=== PATIENT | female | born 1950 | race African-American/Black ===

== ENCOUNTER 2022-04-19 22:47 | Observation (INO) ==
[2022-04-20 02:40] LABS: Basophils # (auto) 0.01 K/uL (0-0.2); Basophils % (auto) 0.2 %; Eosinophils # (auto) 0.18 K/uL (0-0.5); Eosinophils % (auto) 3.6 %; Hematocrit (blood only) 33.1 % (37-47); Hemoglobin 10.4 g/dL (12.0-16.0); Immature Granulocytes # (auto) 0.01 K/uL (0.00-0.02); Immature Granulocytes % (auto) 0.2 %; Lymphocytes # (auto) 1.73 K/uL (1.2-3.4); Lymphocytes % (auto) 34.3 %; Mean Corpuscular Hemoglobin 28.2 pg (25-34); Mean Corpuscular Hgb Conc 31.4 g/dL (32-36); Mean Corpuscular Volume 89.7 fL (80-100); Mean Platelet Volume 10.5 fL (7.4-10.4); Monocytes # (auto) 0.44 K/uL (0.11-0.59); Monocytes % (auto) 8.7 %; Neutrophils # (auto) 2.68 K/uL (1.4-6.5); Platelet Count 280 K/uL (130-400); RDW Coefficient of Variation 14.7 % (11.5-14.5); RDW Standard Deviation 48.2 fL (36.4-46.3); Red Blood Count 3.69 M/uL (4.2-5.4); White Blood Count 5.05 K/uL (4.8-10.8)
[2022-04-20 02:55] LABS: Albumin Globulin Ratio 1.6 (0.9-2); Albumin Level 4.2 gm/dl (3.4-5.0); BUN Creatinine Ratio 23.1 (10-20); Bilirubin,Total 0.3 mg/dl (0.2-1.0); Calcium 9.2 mg/dl (8.5-10.1); Creatinine Clr Calc Pharmacy 63.5 ml/min; Est GFR (African American) 74.1 ml/min; Est GFR (Non-African American) 63.9 ml/min; Globulin 2.7 gm/dl (2.5-4.0); Potassium 3.9 mmol/L (3.5-5.1); Total Protein 6.9 gm/dl (6.0-8.3)
[2022-04-20] MEDS ORDERED: OPTIRAY 320 125ml IV ONE (03:46)
--- NOTE | 2022-04-20 04:22 | Emergency Department Note ---
Impression & Plan Gait instability Admit to the [facility] service ED Provider Note NAME: ODILON ENCARNACION AGE: 72 SEX: F ARRIVES VIA: Walk-In INFORMANT: Patient and her daughter ED PROVIDER(S): Nakia Conner DO CHIEF COMPLAINT: Gait instability PLAN: Disposition: Admit to the [facility] service Condition: Stable MEDICAL DECISION MAKING: This is a 72-year-old female patient who awoke yesterday morning with significant balance issues as she describes it. The patient has baseline balance issues but awoke with significant decline in walking. CT of the brain was negative. Laboratory studies were unremarkable but the patient had to use 2 canes in order to ambulate at home. I remain concerned about the possibility of a posterior stroke. She will require MRI of the brain. I discussed the case with the [facility] and they will evaluate for further management. Triage Nursing notes reviewed and agree with them. Prior medical records reviewed Vital Signs: reviewed and remarkable for [no significant abnormalities] Differential diagnosis: Vertigo, dehydration, posterior circulation stroke, Diagnostics interpreted by me: ECG: Normal sinus rhythm at a rate of [address] segment elevation or signs of ischemia. There is no ectopy. Cardiac Monitoring: Normal sinus rhythm at a rate of 62 Laboratory studies: See below Imaging studies: As per stat read CT head: No acute intracranial abnormality. Senescent changes. If there is further concern, consider MRI. CTA head: Findings suspicious for saccular aneurysm of the slow supraclinoid left internal carotid artery measuring 3 x 2 mm. No other acute findings within the head. Recommend MRI if there is further concern. CTA neck: No evidence of flow-limiting stenosis or evidence of dissection within the neck. Diffusely enlarged thyroid with heterogeneity without discrete nodule. Consider thyroid ultrasound on a nonemergent basis HPI: 72/F arrives for evaluation of balance issues. The patient awoke yesterday morning with significant balance instability when walking. The patient states that she has difficulty with her balance in the first place and uses a cane to walk but when she woke up yesterday morning she had a very hard time walking and had to use 2 canes in order to get around. She states that she felt weak, nauseated and heaviness in her head as she describes it. There was also some dizziness. ROS: See above HPI for pertinent positives & negatives. A total of 10 systems reviewed and were otherwise negative. PAST MEDICAL HISTORY:Diabetes, hypercholesterolemia, hypertension, asthma, and depression PAST SURGICAL HISTORY:See Below FAMILY HISTORY:See Below SOCIAL HISTORY:See Below HOME MEDICATIONS:See list ALLERGIES:See list VITALS:See Below PHYSICAL EXAMINATION: HEENT: Head - normocephalic and atraumatic. Pupils are equal, round, and reactive to light. Extraocular eye muscles are intact and sclera are anicteric. Nose - moist nasal mucosa without discharge. Mouth - moist buccal mucosa. Oropharynx is nonerythematous and there is no tonsillar exudate or edema noted. Neck: Supple; no cervical lymphadenopathy or JVD Heart: Regular rate and rhythm. There is a normal S1 and S2 with no murmurs, clicks, or gallops appreciated. Lungs: Clear to auscultation bilaterally with no wheezes, rales, or rhonchi. Abdomen: Soft, completely nontender, nondistended, with good bowel sounds. There are no palpable pulsatile masses or hepatosplenomegaly. There is no guarding, rigidity, or rebound noted. Extremities: No evidence of cyanosis, clubbing, or edema. There are easily palpable peripheral pulses. Neuro:The patient is awake and alert, oriented to day, time, and place. Muscle strength is 5/5 in all 4 extremities. The patient has equal forestry consultant strength and equal pedal push and pull. There are no cerebellar signs. ED COURSE: Times/Reassessments: 0200: The patient was evaluated in room C 11. A complete history and physical was performed. Laboratory studies were drawn as above. An order was placed for continuous cardiac monitoring. The patient was in a normal sinus rhythm at a rate of 62. She had a twelve-lead EKG obtained as described above. patient went for CT of the brain and CT angiogram of the brain and neck. I reviewed the results of the laboratory studies and CT scans with the patient and her daughter. I discussed the case with the [facility] and they will evaluate for further management. Nakia Conner DO Past Med/Surg History Medical History (Updated 04/20/22 @ 22:44 by Lulú Turcios DO) Anxiety and depression Arthritis Asthma rare use of PRN inh Bipolar 2 disorder Cardiac murmur no slag expander; echo 2019 [facility] in [place], [place] DM type 2 (diabetes mellitus, type 2) GERD (gastroesophageal reflux disease) History of radioactive iodine thyroid ablation HLD (hyperlipidemia) HTN (hypertension) Hypothyroidism Pancreatic cyst PCP monitoring Spinal stenosis Surgical History History of bilateral knee replacement History of carpal tunnel surgery BL History of cholecystectomy History of colonoscopy History of esophagogastroduodenoscopy (EGD) History of foot surgery left History of hysterectomy History of lumbar fusion History of rotator cuff surgery left History of tonsillectomy Family History Mother Hypertension Sister Hypertension Allergies Brother Allergies Father Heart disease Family/Other Asthma "everyone" Other No family history of adverse response to anesthesia No family history of bleeding disorder Social History Smoking Status: Never smoker Tobacco Type: Cigarettes packs per day: 1; Years Smoked: 10; Second Hand Exposure: No; Do You Dip or Chew Tobacco: No; Tobacco Cessation Education Requested by Patient: No Hx Alcohol Use: No Hx Substance Use: No Preferred Language: Citizen Of [place] Communication Ability: Effective Breaker Operator Required: No Beliefs That Will Affect Care: None marital status: Single Current Living Situation: Family Current Living Situation Comment: lives with dtr current occupational status: employed current occupation: customer liaison Other Information That Helps Us Care for You: No Feels Safe at Home: Yes Safety Concerns: Feels Safe At This Time Assistive Devices: Crutches Allergies Allergies Allergy/AdvReac Type Severity Reaction Status Date / Time pollen extracts Allergy Intermediate Congested Verified 09/09/21 09:02 amoxicillin [From Augmentin] AdvReac gi bleed Verified 09/09/21 09:02 clavulanic acid AdvReac gi bleed Verified 09/09/21 09:02 [From Augmentin] Home Meds Home Medications Medication Instructions Recorded Confirmed aspirin 81 mg tablet,delayed 81 mg PO PM 08/24/21 09/09/21 release (Brennon Low Dose Aspirin) atorvastatin 40 mg tablet 40 mg PO HS 08/24/21 09/09/21 buspirone 10 mg tablet 10 mg PO BID 08/24/21 09/09/21 cyanocobalamin (vitamin B-12) 1,000 mcg PO QAM 08/24/21 09/09/21 1,000 mcg tablet (Vitamin B-12) ferrous sulfate 325 mg (65 mg 325 mg PO QAM 08/24/21 09/09/21 iron) tablet fexofenadine 180 mg tablet 180 mg PO QAM 08/24/21 09/09/21 fluoxetine 40 mg capsule 40 mg PO QAM 08/24/21 09/09/21 lamotrigine 100 mg tablet 100 mg PO HS 08/24/21 09/09/21 lamotrigine 150 mg tablet 150 mg PO HS 08/24/21 09/09/21 levothyroxine 75 mcg tablet 75 mcg PO DAILYBB 08/24/21 09/09/21 losartan 100 1 tab PO QAM 08/24/21 09/09/21 mg-hydrochlorothiazide 25 mg tablet metformin 500 mg tablet,extended 1,000 mg PO BID 08/24/21 09/09/21 release 24 hr montelukast 10 mg tablet 10 mg PO HS 08/24/21 09/09/21 pantoprazole 40 mg tablet,delayed 40 mg PO QAM 08/24/21 09/09/21 release trazodone 100 mg tablet 100 mg PO HS 08/24/21 09/09/21 albuterol sulfate 90 mcg/actuation 1 puff INHALATION QID PRN 08/25/21 09/09/21 aerosol inhaler hyoscyamine sulfate 0.125 mg 0.125 mg PO BID PRN 04/20/22 04/20/22 tablet (Levsin) Results & Data (ED) Vital Signs Vital Signs - 24 hr 04/19/22 22:56 04/20/22 01:05 04/20/22 01:10 Temperature 37 C Temperature Source Temporal Artery Scan Pulse Rate 66 55 L 54 L Pulse Rate [Right] Pulse Rate from SpO2 Sensor 55 L 55 L Pulse Rhythm Regular Pulse Rhythm [Right] Pulse Strength Normal Pulse Strength [Right] Respiratory Rate 18 13 14 Respiratory Effort / Characteristics Non-Labored Spontaneous Respiratory Depth Normal Respiratory Pattern Regular Blood Pressure 128/58 L Blood Pressure [Right Arm] Blood Pressure Mean 81 Blood Pressure Mean [Right Arm] Blood Pressure Position Sitting Blood Pressure Position [Right Arm] Pulse Oximetry 98 96 98 Oxygen Delivery Method Room Air Sepsis Recent Fever Within 48 Hours No Sepsis New/Unexplained Change in Mental Status N/A Sepsis Action Taken by Nursing No Action Required 04/20/22 01:20 04/20/22 01:30 04/20/22 01:40 Temperature Temperature Source Pulse Rate 56 L 56 L 57 L Pulse Rate [Right] Pulse Rate from SpO2 Sensor 56 L 56 L 57 L Pulse Rhythm Pulse Rhythm [Right] Pulse Strength Pulse Strength [Right] Respiratory Rate 15 16 18 Respiratory Effort / Characteristics Respiratory Depth Respiratory Pattern Blood Pressure 139/74 Blood Pressure [Right Arm] Blood Pressure Mean 95 Blood Pressure Mean [Right Arm] Blood Pressure Position Blood Pressure Position [Right Arm] Pulse Oximetry 95 95 95 Oxygen Delivery Method Sepsis Recent Fever Within 48 Hours Sepsis New/Unexplained Change in Mental Status Sepsis Action Taken by Nursing 04/20/22 01:50 04/20/22 02:00 04/20/22 02:10 Temperature Temperature Source Pulse Rate 58 L 57 L 58 L Pulse Rate [Right] Pulse Rate from SpO2 Sensor 58 L 57 L 58 L Pulse Rhythm Pulse Rhythm [Right] Pulse Strength Pulse Strength [Right] Respiratory Rate 16 13 14 Respiratory Effort / Characteristics Non-Labored Respiratory Depth Normal Respiratory Pattern Blood Pressure 165/72 H Blood Pressure [Right Arm] Blood Pressure Mean 103 Blood Pressure Mean [Right Arm] Blood Pressure Position Blood Pressure Position [Right Arm] Pulse Oximetry 95 97 98 Oxygen Delivery Method Room Air Sepsis Recent Fever Within 48 Hours Sepsis New/Unexplained Change in Mental Status Sepsis Action Taken by Nursing 04/20/22 02:20 04/20/22 02:30 04/20/22 02:36 Temperature Temperature Source Pulse Rate 58 L 59 L Pulse Rate [Right] Pulse Rate from SpO2 Sensor 58 L 59 L Pulse Rhythm Pulse Rhythm [Right] Pulse Strength Pulse Strength [Right] Respiratory Rate 19 18 Respiratory Effort / Characteristics Respiratory Depth Respiratory Pattern Blood Pressure Blood Pressure [Right Arm] Blood Pressure Mean Blood Pressure Mean [Right Arm] Blood Pressure Position Blood Pressure Position [Right Arm] Pulse Oximetry 98 98 99 Oxygen Delivery Method Room Air Sepsis Recent Fever Within 48 Hours Sepsis New/Unexplained Change in Mental Status Sepsis Action Taken by Nursing 04/20/22 03:40 04/20/22 04:50 04/20/22 05:59 Temperature Temperature Source Pulse Rate Pulse Rate [Right] 59 L 76 57 L Pulse Rate from SpO2 Sensor Pulse Rhythm Pulse Rhythm [Right] Regular Pulse Strength Pulse Strength [Right] Normal Respiratory Rate 16 16 16 Respiratory Effort / Characteristics Non-Labored Spontaneous Non-Labored Spontaneous Non-Labored Spontaneous Respiratory Depth Normal Normal Normal Respiratory Pattern Blood Pressure Blood Pressure [Right Arm] 141/80 H 163/84 H 169/86 H Blood Pressure Mean Blood Pressure Mean [Right Arm] 100 110 113 Blood Pressure Position Blood Pressure Position [Right Arm] Lying Pulse Oximetry 98 96 96 Oxygen Delivery Method Room Air Room Air Room Air Sepsis Recent Fever Within 48 Hours Sepsis New/Unexplained Change in Mental Status Sepsis Action Taken by Nursing Laboratory Data Result diagrams: 04/21/22 05:43 04/21/22 05:43 Lab Results 04/20/22 04/20/22 04/20/22 Range/Units 00:42 00:42 04:35 WBC 5.05 (4.8-10.8) K/uL RBC 3.69 L (4.2-5.4) M/uL Hgb 10.4 L (12.0-16.0) g/dL Hct 33.1 L (37-47) % MCV 89.7 (80-100) fL MCH 28.2 (25-34) pg MCHC 31.4 L (32-36) g/dL RDW Std Deviation 48.2 H (36.4-46.3) fL RDW Coeff of Alex 14.7 H (11.5-14.5) % Plt Count 280 (130-400) K/uL MPV 10.5 H (7.4-10.4) fL Immature Gran % (Auto) 0.2 % Neut % (Auto) 53.0 % Lymph % (Auto) 34.3 % [place] % (Auto) 8.7 % Eos % (Auto) 3.6 % Baso % (Auto) 0.2 % Neut # (Auto) 2.68 (1.4-6.5) K/uL Lymph # (Auto) 1.73 (1.2-3.4) K/uL [place] # (Auto) 0.44 (0.11-0.59) K/uL Eos # (Auto) 0.18 (0-0.5) K/uL Baso # (Auto) 0.01 (0-0.2) K/uL Immature Gran # (Auto) 0.01 (0.00-0.02) K/uL Sodium 135 L (136-145) mmol/L Potassium 3.9 (3.5-5.1) mmol/L Chloride 100 (98-107) mmol/L Carbon Dioxide 28 (21-32) mmol/L Anion Gap 7 (3-11) BUN 21 (6-23) mg/dl Creatinine 0.91 (0.6-1.2) mg/dl Est Cr Clr Drug Dosing 63.5 ml/min Est GFR ( Amer) 74.1 ml/min Est GFR (Non-Af Amer) 63.9 ml/min BUN/Creatinine Ratio 23.1 H (10-20) Glucose 107 H (70-99(Fasting)) mg/dl Calcium 9.2 (8.5-10.1) mg/dl Total Bilirubin 0.3 (0.2-1.0) mg/dl AST 12 L (13-39) U/L ALT 9 (7-52) U/L Alkaline Phosphatase 71 (34-104) U/L Total Protein 6.9 (6.0-8.3) gm/dl Albumin 4.2 (3.4-5.0) gm/dl Globulin 2.7 (2.5-4.0) gm/dl Albumin/Globulin Ratio 1.6 (0.9-2) SARS-CoV-2, RNA, NAAT NEGATIVE (NEGATIVE) Administered Medications Acetaminophen (Acetaminophen 325 Mg Tab) 650 mg PO Q4H PRN PRN Reason: Pain or Fever Stop: 05/20/22 09:17 Last Admin: 04/20/22 10:21 Dose: 650 mg Documented by: [id number] Aspirin (Aspirin 81 Mg Ectab) 81 mg PO PM CHERI Stop: 05/20/22 20:59 Last Admin: 04/20/22 21:46 Dose: 81 mg Documented by: [id number] Atorvastatin Calcium (Atorvastatin 40 Mg Tab) 40 mg PO HS CHERI Stop: 05/20/22 20:59 Last Admin: 04/20/22 21:47 Dose: 40 mg Documented by: [id number] Buspirone HCl (Buspirone 5 Mg Tab) 10 mg PO BID CHERI Stop: 05/20/22 20:59 Last Admin: 04/21/22 08:01 Dose: 10 mg Documented by: [id number] Admin: 04/20/22 21:47 Dose: 10 mg Documented by: [id number] Cyanocobalamin (Cyanocobalamin (B-12) 500 Mcg Tablet) 1,000 mcg PO QAM [facility]ERI Stop: 05/21/22 08:59 Last Admin: 04/21/22 08:00 Dose: 1,000 mcg Documented by: [id number] Enoxaparin Sodium (Enoxaparin Inj 40 Mg/0.4 Ml Syr) 40 mg SQ [facility] Stop: 05/20/22 09:44 Last Admin: 04/21/22 08:00 Dose: 40 mg Documented by: [id number] Admin: 04/20/22 10:19 Dose: 40 mg Documented by: [id number] Ferrous Sulfate (Ferrous Sulfate 325 Mg Tab) 325 mg PO [facility] Stop: 05/21/22 08:59 Last Admin: 04/21/22 08:00 Dose: 325 mg Documented by: [id number] Fexofenadine HCl (Fexofenadine Hcl 180 Mg Tab) 180 mg PO [facility] Stop: 05/21/22 08:59 Last Admin: 04/21/22 08:00 Dose: 180 mg Documented by: [id number] Fluoxetine HCl (Fluoxetine Hcl 20 Mg Cap) 40 mg PO [facility] Stop: 05/20/22 10:59 Last Admin: 04/21/22 08:01 Dose: 40 mg Documented by: [id number] Admin: 04/20/22 12:08 Dose: 40 mg Documented by: [id number] HCTZ/Losartan Potassium (Losartan/Hctz 50/12.5mg Tab) 1 tab PO [facility] Stop: 05/20/22 10:59 Last Admin: 04/21/22 08:00 Dose: 1 tab Documented by: [id number] Admin: 04/20/22 12:08 Dose: 1 tab Documented by: [id number] Insulin Aspart (Insulin Aspart Per Unit) 0 units SC [facility] Stop: 05/20/22 09:17 Last Admin: 04/21/22 08:03 Dose: Not Given Documented by: [id number] Admin: 04/20/22 20:32 Dose: Not Given Documented by: [id number] Admin: 04/20/22 17:14 Dose: Not Given Documented by: [id number] Admin: 04/20/22 13:54 Dose: 3 units Documented by: [id number] Cosigned by: [id number] Admin: 04/20/22 10:23 Dose: Not Given Documented by: [id number] Lamotrigine (Lamotrigine 100 Mg Tab) 250 mg PO [facility] Stop: 05/20/22 20:59 Last Admin: 04/20/22 21:44 Dose: 250 mg Documented by: [id number] Levothyroxine Sodium (Levothyroxine Sodium 75 Mcg Tablet) 75 mcg PO DAILYBB [facility] Stop: 05/21/22 06:29 Last Admin: 04/21/22 05:47 Dose: 75 mcg Documented by: [id number] Montelukast Sodium (Montelukast Sodium 10 Mg Tablet) 10 mg PO [facility] Stop: 05/20/22 20:59 Last Admin: 04/20/22 21:46 Dose: 10 mg Documented by: [id number] Pantoprazole Sodium (Pantoprazole 40 Mg Tab) [facility] Stop: 05/20/22 10:59 Last Admin: 04/21/22 08:00 Dose: 40 mg Documented by: [id number] Admin: 04/20/22 12:08 Dose: 40 mg Documented by: [id number] Trazodone HCl (Trazodone Hcl 100 Mg Tab) 100 mg PO [facility] Stop: 05/20/22 20:59 Last Admin: 04/20/22 21:46 Dose: 100 mg Documented by: [id number] Discontinued Medications Gadobutrol (Gadobutrol 65ml Vial) 9.2 ml IV ONCE ONE Stop: 04/20/22 13:36 Last Admin: 04/20/22 12:54 Dose: 9.2 ml Documented by: [id number] Sodium Chloride (1/2 Nss) 1,000 mls @ 80 mls/hr IV .[id number] [facility] Stop: 04/20/22 21:47 Last Infusion: 04/20/22 22:51 Dose: 0 mls/hr Documented by: [id number] Admin: 04/20/22 10:18 Dose: 80 mls/hr Documented by: [id number] Ioversol (Optiray 320 125ml) 125 ml IV ONCE ONE Stop: 04/20/22 03:47 Last Admin: 04/20/22 03:47 Dose: 116 ml Documented by: [id number] Imaging Data Radiologist's Impression: Head CT 04/20/22 02:23 CT head/brain wo/w con HISTORY: 72 years-old Female eval for post circ stroke; off balance; dizzy acute strokelike symptoms with dizziness COMPARISON: CTA head neck of same day TECHNIQUE: CTA of the head was obtained both with and without the use of uncertain 116 mL Optiray 320. All measurements were obtained according to NASCET criteria. 3-D coronal and sagittal MIPS were obtained and submitted for review. A dose lowering technique was used consistent with the principals of ALARA. FINDINGS: CT HEAD: No acute intracranial hemorrhage, midline shift, abnormal extra axial collection, hydrocephalus or acute territorial infarct. Mild involutional changes. Minimal white matter hypodensities are suggestive of probable chronic microvascular ischemic disease. No acute calvarial fracture. The mastoid air cells and paranasal sinuses are clear. CTA: There is a 3 x 2 mm saccular aneurysm which arises from the medial aspect of the supraclinoid segment of the left internal carotid artery on image 84 series 5. No evidence of aneurysm rupture. The imaged right internal carotid artery appears normal. Patent anterior and middle cerebral arteries. The imaged distal aspects of the vertebral arteries, basilar and posterior cerebral arteries appear unremarkable. No aneurysm, dissection, high-grade stenosis or arterial occlusion. Cerebral venous sinuses are patent. There is no abnormal intra-axial enhancement. Enhancing 2.0 cm extra-axial partially calcified lesion adjacent to the superior aspect of the right cerebral convexity is noted on image 210 series 5. IMPRESSION: 1. 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 2. Otherwise unremarkable CTA of the head. 3. No acute intracranial abnormality. 4. Probable meningioma adjacent to the superior right cerebral convexity measures 2 cm. ACT 112: Negative or not required by law. The above report was generated using voice recognition software. It may contain grammatical, syntax or spelling errors. Electronically signed by: Ajay Cadena M.D. 04/20/2022 7:46 AM Neck CTA 04/20/22 02:23 CT angio neck with con CLINICAL HISTORY: 72 years-old Female with eval for post circ stroke. Acute strokelike symptoms COMPARISON STUDY: CTA had of same day TECHNIQUE: Following the IV administration of 116 mL of Optiray, CT angiogram of the neck was performed from the aortic arch to the skull base. Images are reviewed in the axial, sagittal, and coronal planes. 3-D MIPS images are created and assessed. IV contrast was administered without complication. All measurements were calculated based on NASCET criteria. A dose lowering technique was utilized adhering to the principles of ALA. FINDINGS: The imaged opacified pulmonary artery is unremarkable. Mild atherosclerosis of the thoracic arch. There is patency of the innominate and imaged subclavian arteries. The common and imaged internal carotid arteries are patent and unremarkable. There is 50% stenosis involving the V2 segment of the left vertebral artery at the level of C4-C5 secondary to uncovertebral hypertrophy (image 205 of series 6). The right vertebral artery is widely patent. Patent basilar artery. There are a few tiny nonspecific solid pulmonary nodules measuring up to 3-4 mm within the left upper lobe. No pneumothorax. Heterogeneous multinodular thyroid. Unremarkable soft tissues. Multilevel degenerative changes of the cervical spine. Cardiomegaly. IMPRESSION: 1. No aneurysm, dissection, high-grade stenosis or arterial occlusion. 2. 50% stenosis of the V2 segment left vertebral artery secondary to uncovertebral hypertrophy of the cervical spine. 3. Multinodular thyroid goiter. ACT 112: Negative or not required by law. The above report was generated using voice recognition software. It may contain grammatical, syntax or spelling errors. Electronically signed by: Ajay Cadena M.D. 04/20/2022 8:26 AM Discharge Plan Visit Data Chief Complaint: Illness Stated Complaint: DIZZINESS, HEADACHE, WEAKNESS ED Provider: Nakia Conner Discharge Problem: Gait instability Patient Disposition: Admitted As Inpatient Discharge Instructions Interventions: ED Discharge Assessment Last Done: 04/20/22 08:00
--- NOTE | 2022-04-20 07:48 | CT Scan Report ---
CT head/brain wo/w con HISTORY: 72 years-old Female eval for post circ stroke; off balance; dizzy acute strokelike symptoms with dizziness COMPARISON: CTA head neck of same day TECHNIQUE: CTA of the head was obtained both with and without the use of uncertain 116 mL Optiray 320 . All measurements were obtained according to NASCET criteria. 3-D coronal and sagittal MIPS were obt ained and submitted for review. A dose lowering technique was used consistent with the principals of KIN. FINDINGS: CT HEAD: No acute intracranial hemorrhage, midline shift, abnormal extra axial collection, hydrocephalus or ac [place] territorial infarct. Mild involutional changes. Minimal white matter hypodensities are suggestive of probable chronic microvascular ischemic disease. No acute calvarial fracture. The mastoid air noe ls and paranasal sinuses are clear. CTA: There is a 3 x 2 mm saccular aneurysm which arises from the medial aspect of the supraclinoid segment of the left internal carotid artery on image 84 series 5. No evidence of aneurysm rupture. The image d right internal carotid artery appears normal. Patent anterior and middle cerebral arteries. The esperanza ged distal aspects of the vertebral arteries, basilar and posterior cerebral arteries appear unremark able. No aneurysm, dissection, high-grade stenosis or arterial occlusion. Cerebral venous sinuses are patent. There is no abnormal intra-axial enhancement. Enhancing 2.0 cm extra-axial partially calcifi ed lesion adjacent to the superior aspect of the right cerebral convexity is noted on image 210 serie s 5. IMPRESSION: 1. 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 2. Otherwise unremarkable CTA of the head. 3. No acute intracranial abnormality. 4. Probable meningioma adjacent to the superior right cerebral convexity measures 2 cm. ACT 112: Negative or not required by law. The above report was generated using voice recognition software. It may contain grammatical, syntax o r spelling errors. Electronically signed by: Ajay Cadena M.D. 04/20/2022 7:46 AM
--- NOTE | 2022-04-20 08:27 | CT Scan Report ---
CT angio neck with con CLINICAL HISTORY: 72 years-old Female with eval for post circ stroke. Acute strokelike symptoms COMPARISON STUDY: CTA had of same day TECHNIQUE: Following the IV administration of 116 mL of Optiray, CT angiogram of the neck was perform ed from the aortic arch to the skull base. Images are reviewed in the axial, sagittal, and coronal pl anes. 3-D MIPS images are created and assessed. IV contrast was administered without complication. Al l measurements were calculated based on NASCET criteria. A dose lowering technique was utilized adhe ring to the principles of ALARA. FINDINGS: The imaged opacified pulmonary artery is unremarkable. Mild atherosclerosis of the thoracic arch. The re is patency of the innominate and imaged subclavian arteries. The common and imaged internal caroti d arteries are patent and unremarkable. There is 50% stenosis involving the V2 segment of the left ve rtebral artery at the level of C4-C5 secondary to uncovertebral hypertrophy (image 205 of series 6). The right vertebral artery is widely patent. Patent basilar artery. There are a few tiny nonspecific solid pulmonary nodules measuring up to 3-4 mm within the left upper lobe. No pneumothorax. Heterogeneous multinodular thyroid. Unremarkable soft tissues. Multilevel deg enerative changes of the cervical spine. Cardiomegaly. IMPRESSION: 1. No aneurysm, dissection, high-grade stenosis or arterial occlusion. 2. 50% stenosis of the V2 segment left vertebral artery secondary to uncovertebral hypertrophy of the cervical spine. 3. Multinodular thyroid goiter. ACT 112: Negative or not required by law. The above report was generated using voice recognition software. It may contain grammatical, syntax o r spelling errors. Electronically signed by: Ajay Cadena M.D. 04/20/2022 8:26 AM
[2022-04-20] MEDS ORDERED: SODIUM CHLORIDE 0.45 % 1,000 ML IV SCH (09:18)
[2022-04-20] MEDS ORDERED: POLYETHYLENE (MIRALAX) 17 GM PACK PO PRN (09:18)
[2022-04-20] MEDS ORDERED: ONDANSETRON INJ 2 MG/ML 2 ML VIAL IV PRN (09:18)
[2022-04-20] MEDS ORDERED: ACETAMINOPHEN 325 MG TAB PO PRN (09:18)
[2022-04-20] MEDS ORDERED: NITROGLYCERIN SL 0.4 MG/TAB TAB SL PRN (09:18)
--- NOTE | 2022-04-20 09:28 | History and Physical Report ---
DATE OF ADMISSION: 04/20/2022. CHIEF COMPLAINT: Imbalance. HISTORY OF PRESENT ILLNESS: This is a 72-year-old female with past medical history significant for type 2 diabetes, hypothyroidism, hyperlipidemia, moderate persistent asthma, allergic rhinitis, hypertension, obesity, GERD, history of meningioma, history of iron deficiency anemia, history of bipolar 1 disorder, history of insomnia, who presents with imbalance. Patient states she is always having balance issues, but yesterday on Tuesday morning, around 2 a.m. when she woke up, she was having difficulty ambulating with imbalance, she had to hold things to go to bathroom. She was not getting better. She was nauseous, that was the reason she came here. 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 No other acute findings. CT of the head is okay.Getting admitted to do MRI scan and Neurology consult. Currently, resting comfortably. Denies any headache. No blurred visions, no earache, no runny nose, no sore throat. She has some sinuses going on, some cough from sinuses. No difficulty swallowing. No chest pain, no shortness of breath, no abdominal pain. Normal bowel and bladder movements. No swelling in the legs. ALLERGIES: AUGMENTIN, POLLEN EXTRACTS. PAST MEDICAL HISTORY: As mentioned above. PAST SURGICAL HISTORY: Cholecystectomy, colonoscopy, EGD with endoscopic ultrasound, ERCP with stent exchange, laminectomy, partial hysterectomy, left fourth toe surgery, repair of rotator cuff, bilateral knee replacements. MEDICATIONS: As per [facility], the patient is on famotidine 20 mg p.o. daily, Zofran 4 mg p.o. t.i.d. p.r.n., hyoscyamine 0.125 mg b.i.d. p.r.n., losartan/hydrochlorothiazide 100/25 mg p.o. daily, cetirizine 10 mg p.o. daily, Singulair 10 mg p.o. at bedtime, metformin 1000 mg p.o. b.i.d., atorvastatin 40 mg p.o. daily, Protonix 40 mg p.o. daily, sucralfate 1 gram p.o. b.i.d., levothyroxine 75 mcg p.o. daily, albuterol 2 puffs inhalation q. 4 hours p.r.n., Flonase 2 sprays in the morning, Lamictal 300 mg p.o. daily, vitamin B12 1000 mcg p.o. daily, buspirone 10 mg p.o. daily, fluoxetine 40 mg p.o. daily, iron 325 mg b.i.d., MiraLax 1 mg daily p.r.n., trazodone 100 mg p.o. at bedtime. FAMILY HISTORY: Significant for brother has allergies; daughter has allergies; sister has allergies. Maternal aunt has breast cancer; paternal grandmother has breast cancer; uncle has colon cancer; brother has colonic polyps. Daughter has irritable bowel syndrome. SOCIAL HISTORY: , former smoker, smoked 1 pack for 28 years, quit in 1987. No alcohol use. No drug use. REVIEW OF SYSTEMS: As per HPI. Rest of the review of systems is negative. PHYSICAL EXAMINATION: GENERAL: The patient is of moderate build, not in acute distress. VITAL SIGNS: Temperature 37, pulse 57, respiratory rate 16, blood pressure 169/86, oxygen 96% on room air. HEENT: Pupils equal, round and reactive to light. Oral mucosa moist. NECK: No JVD, no neck masses. CARDIOVASCULAR: S1 and S2 heard. Regular rate and rhythm. No murmur, no gallop. RESPIRATORY SYSTEM: Normal AP diameter. No accessory muscle use. No wheezing, no crackles. ABDOMEN: Soft. Bowel sounds are present, nontender, no distention. CENTRAL NERVOUS SYSTEM: Alert and oriented. Speech is clear. No facial droop. Power 5/5 in all extremities. Sensation is intact. coordination of movements normal. No pronator drift seen. EXTREMITIES: No edema, no erythema. LABORATORY: WBC 5, hemoglobin 10.4, hematocrit 33.1, platelets 280. Sodium 135, potassium 3.9, chloride 100, bicarb 28, BUN 71, creatinine 0.9, serum glucose 107, calcium 9.2, total bilirubin 0.3, AST 12, ALT 9, alkaline phosphatase 71. SARS-CoV-2 rapid test negative. IMAGING: CTA of the head and neck, preliminary report shows a saccular aneurysm of the left internal carotid artery, otherwise CT of the head unremarkable. EKG: Normal sinus rhythm at a rate of 60. Possible left atrial enlargement. ASSESSMENT AND PLAN: This 72-year-old female who presents with ongoing imbalance. 1. Imbalance: Patient has some imbalance issue for some time chronically, but since Tuesday morning, it got worse, not able to ambulate. CTA of the head and neck were unremarkable, saccular aneurysm in the internal carotid artery, We will do MRI scans, MRI of the head and MRI of the head and neck. Neuro consult. Once stable, we will do PT/OT. Monitor in the [facility] tele. 2. History of diabetes: Hold metformin. Placed on insulin sliding scale. Follow blood sugars. 3. Hypothyroidism: Continue Synthroid. 4. Hyperlipidemia: On statin. 5. Asthma, currently stable: Continue home medications. 6. Hypertension, on losartan/hydrochlorothiazide: We will monitor the blood pressure. 7. History of bipolar 1 disorder and depression: Continue home medication of Lamictal, fluoxetine, BuSpar. 8. History of meningioma: We will follow the MRI scan. 9. History of iron deficiency anemia. Follow the labs. 10. Gastroesophageal reflux disease: On Protonix. 11. Deep venous thrombosis prophylaxis: Sequential compression devices for now. DISPOSITION: Admit to [facility] tele. PT/OT prior to discharge. Social Service to help with discharge planning. Level 1 full code. Job ID: [id number] [facility]
[2022-04-20] MEDS ORDERED: DEXTROSE 50% 50 ML SYRINGE IV PRN (09:45)
[2022-04-20] MEDS ORDERED: GLUCAGON FOR INJ 1 MG VIAL IM PRN (09:45)
[2022-04-20] MEDS ORDERED: GLUCOSE 40% GEL 15 GM TUBE PO PRN (09:45)
[2022-04-20] MEDS ORDERED: CARBOHYDRATES FOR HYPOGLYCEMIA PO PRN (09:45)
[2022-04-20] MEDS ORDERED: GLUCOSE 10 TABS/TUBE PO PRN (09:45)
[2022-04-20] MEDS: ENOXAPARIN INJ 40 MG/0.4 ML SYR SQ SCH (10:19)
[2022-04-20] MEDS: INSULIN ASPART PER UNIT SC SCH ×4 (10:23→20:32)
[2022-04-20] MEDS ORDERED: HYOSCYAMINE SULFATE 0.125 MG TAB PO PRN (10:41)
[2022-04-20] MEDS ORDERED: ALBUTEROL HFA 8 GM INHALER INH PRN (10:41)
--- NOTE | 2022-04-20 11:56 | Neurology Consultation ---
Date of Consultation April 20, 2022 Assessment & Plan (1) Gait instability: 1. MRI brain - r/o stroke 2. MRA head/neck -3 mm saccular anerysm would repeat MRA head in 1 year 3. PT/OT - discharge needs 4. EMG done by Dr Alvina Laureano 11/03/21- polyneuropathy 5. will arrange an appointment for her to see our movement specialist Dr Grande in follow up 6. ok to discharge once medically stable. Supervising Physician Co-Signing Physician Notes I have seen and discussed above patient with Dr Chris Mott, neurology Have examined and interviewed Chacha today in the company of Alvina Colon PA-C who also participated in the process. This is a patient with at least 5 years of an ill-defined chronic gait disturbance with episodes of falling and flareup of symptomatology which occurred yesterday in a more severe fashion and resulted in an admission and evaluation for a possible vascular event Her symptoms indicate that she had a tendency to drift to the right while walking which was atypical for her and this persisted but was accompanied by no other significant symptomatology such as headache sensory loss oscillopsia diplopia numbness of the face or extremities etc. and has been associated with a negative MRI of the brain and unremarkable MR a with the exception of demonstration of a small incidental aneurysm and meningioma which was known about previously, negative CT angiography study of the neck and no residual symptoms after several hours Today she is back to what she considers her baseline which consists of an unusual slightly broad-based minimally dystaxic gait requiring the use of canes for stability but according to the patient actually she is better today than she has been and there is no evidence for abnormal ocular movements dysarthria speech facial weakness facial numbness significant reflux changes other than some hyperreflexia, extensor toe signs or evidence for spasticity and no evidence for abnormal involuntary movements, bradykinesia rigidity or cogwheeling At this point we do not really have a diagnosis other than the fact that on an outpatient basis she has a minor peripheral neuropathy which certainly is not producing this gait disturbance and minimal leukoencephalopathy which also is not responsible. I do not see any evidence for cerebellar atrophy on her current MRI on the previous 1 exam would be most unusual for a later life onset cerebellar ataxia syndrome We are going to arrange for our movement disorder specialist Dr. Grande to see on an outpatient basis and render an opinion about what might be responsible for this somewhat unusual gait I do not think this is a vestibular issue and therefore not going to recommend an ENT evaluation or vestibular therapy but at some point she might respond to outpatient balance and gait therapy which she has not received to date She can be discharged home from a neurologic point of view without further work- up Chris Mott MD The above note was generated utilizing voice recognition technology and may have spelling errors punctuation errors pronoun usage errors and syntax errors History of Present Illness Reason for Consultation: imbalance Requesting Physician: Lulú Turcios DO Attending Physician: Lulú Turcios DO History of Present Illness Chacha is a 72 year old female with PMH- DM2, hypothyroidism, hyperlipidemia, moderate persistent asthma, allergic rhinitis, HTN, obesity, GERD, history of meningioma, JAKE, bipolar 1 disorder, insomnia, who presents to [facility] 04/20/22 with imbalance. She has had balance issues for years, on Tuesday morning, around 2 a.m. when she woke up, she was having difficulty ambulating with imbalance, she had to hold things to go to bathroom and had some nausea. 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 She feels she is back to her baseline and would like to go home. denies CP, SOB, abdominal pain, headache, vertigo type symptoms, N, V. Allergies Allergy/AdvReac Type Severity Reaction Status Date / Time pollen extracts Allergy Intermediate Congested Verified 09/09/21 09:02 amoxicillin [From Augmentin] AdvReac gi bleed Verified 09/09/21 09:02 clavulanic acid AdvReac gi bleed Verified 09/09/21 09:02 [From Augmentin] Home Medications Medication Instructions Recorded Confirmed Type aspirin 81 mg tablet,delayed 81 mg PO PM 08/24/21 09/09/21 History release (Brennon Low Dose Aspirin) atorvastatin 40 mg tablet 40 mg PO HS 08/24/21 09/09/21 History buspirone 10 mg tablet 10 mg PO BID 08/24/21 09/09/21 History cyanocobalamin (vitamin B-12) 1,000 mcg PO QAM 08/24/21 09/09/21 History 1,000 mcg tablet (Vitamin B-12) ferrous sulfate 325 mg (65 mg 325 mg PO QAM 08/24/21 09/09/21 History iron) tablet fexofenadine 180 mg tablet 180 mg PO QAM 08/24/21 09/09/21 History fluoxetine 40 mg capsule 40 mg PO QAM 08/24/21 09/09/21 History lamotrigine 100 mg tablet 100 mg PO HS 08/24/21 09/09/21 History lamotrigine 150 mg tablet 150 mg PO HS 08/24/21 09/09/21 History levothyroxine 75 mcg tablet 75 mcg PO DAILYBB 08/24/21 09/09/21 History losartan 100 1 tab PO QAM 08/24/21 09/09/21 History mg-hydrochlorothiazide 25 mg tablet metformin 500 mg tablet,extended 1,000 mg PO BID 08/24/21 09/09/21 History release 24 hr montelukast 10 mg tablet 10 mg PO HS 08/24/21 09/09/21 History pantoprazole 40 mg tablet,delayed 40 mg PO QAM 08/24/21 09/09/21 History release trazodone 100 mg tablet 100 mg PO HS 08/24/21 09/09/21 History albuterol sulfate 90 mcg/actuation 1 puff INHALATION QID PRN 08/25/21 09/09/21 History aerosol inhaler hyoscyamine sulfate 0.125 mg 0.125 mg PO BID PRN 04/20/22 04/20/22 History tablet (Levsin) Patient History Medical History Anxiety and depression Arthritis Asthma rare use of PRN inh Bipolar 2 disorder Cardiac murmur 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 in [place], [place] DM type 2 (diabetes mellitus, type 2) GERD (gastroesophageal reflux disease) History of radioactive iodine thyroid ablation HLD (hyperlipidemia) HTN (hypertension) Hypothyroidism Pancreatic cyst PCP monitoring Spinal stenosis Surgical History History of bilateral knee replacement History of carpal tunnel surgery BL History of cholecystectomy History of colonoscopy History of esophagogastroduodenoscopy (EGD) History of foot surgery left History of hysterectomy History of lumbar fusion History of rotator cuff surgery left History of tonsillectomy Family History Mother Hypertension Sister Hypertension Allergies Brother Allergies Father Heart disease Family/Other Asthma "everyone" Other No family history of adverse response to anesthesia No family history of bleeding disorder Social History Smoking Status: Former smoker Tobacco Type: Cigarettes packs per day: 1; Years Smoked: 10; Second Hand Exposure: No; Hx Alcohol Use: Yes Alcohol Intake Frequency Comment: occasional Hx Substance Use: No Preferred Language: Cuban Communication Ability: Effective Nurseryperson Required: No Beliefs That Will Affect Care: None marital status: Single Current Living Situation: Family Current Living Situation Comment: lives with dtr current occupational status: employed 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 Feels Safe at Home: Yes Assistive Devices: Denture - Upper, Denture - Lower and Glasses Review of Systems Review of Systems: All systems reviewed & are unremarkable except as noted in HPI & below Physical Exam Physical Exam: Physical Exam: Constitutional: appearance over ourished, healthy and normal Ears, Nose, Mouth and Throat: mucous membranes moist, no injection and skin normal, eyes normal Cardiovascular: normal S-1 and S-2 and regular rate and rhythm Respiratory: course breath sounds Musculoskeletal: no peripheral edema and good distal pulses Skin: no stigmata of neurocutaneous disease noted and normal and intact Eyes: extraocular muscles intact (EOMI) and pupils equal, round and reactive to light (PERRL), no nystagmus NEUROLOGIC EXAMINATION: Mental status: Alert and interactive Oriented to person Speech fluent with no evidence of aphasia Cranial Nerves smile eye brow raise symmetric Reflexes: Deep tendon reflexes were symmetrical and graded 2/5. Sensory: intact to light cool and vibration, GT proprioception intact Coordination: finger to nose Gait/Stance: Posture normal. Gait normal: with steady with steps, base, turning, and tandem gait walks with crutches Motor: Negative for pronator drift of out stretched arms with eyes closed. Strength: hand lean six sigma black belt biceps triceps 5/5, hip flex 5/5 bilaterally Results & Data ([facility]) Vital Signs (Past 12 Hours) Vital Signs Pulse Pulse Resp BP BP Pulse Ox 04/20/22 09:29 52 L 04/20/22 07:30 59 L 16 152/77 H 96 04/20/22 07:00 57 L 16 162/78 H 95 04/20/22 06:30 61 16 96 04/20/22 05:59 57 L 16 169/86 H 96 04/20/22 04:50 76 16 163/84 H 96 04/20/22 03:40 59 L 16 141/80 H 98 04/20/22 02:36 99 04/20/22 02:30 59 L 18 98 04/20/22 02:20 58 L 19 98 04/20/22 02:10 58 L 14 98 04/20/22 02:00 57 L 13 165/72 H 97 04/20/22 01:50 58 L 16 95 04/20/22 01:40 57 L 18 95 04/20/22 01:30 56 L 16 139/74 95 04/20/22 01:20 56 L 15 95 04/20/22 01:10 54 L 14 98 04/20/22 01:05 55 L 13 96 Laboratory Results Abnormal lab results 04/20/22 04/20/22 04/20/22 Range/Units 00:42 00:42 10:21 RBC 3.69 L (4.2-5.4) M/uL Hgb 10.4 L (12.0-16.0) g/dL Hct 33.1 L (37-47) % MCHC 31.4 L (32-36) g/dL RDW Std Deviation 48.2 H (36.4-46.3) fL RDW Coeff of Alex 14.7 H (11.5-14.5) % MPV 10.5 H (7.4-10.4) fL Sodium 135 L (136-145) mmol/L BUN/Creatinine Ratio 23.1 H (10-20) Glucose 107 H (70-99(Fasting)) mg/dl POC Glucose 107 H (70-99) mg/dl AST 12 L (13-39) U/L 04/20/22 Range/Units 11:23 RBC (4.2-5.4) M/uL Hgb (12.0-16.0) g/dL Hct (37-47) % MCHC (32-36) g/dL RDW Std Deviation (36.4-46.3) fL RDW Coeff of Alex (11.5-14.5) % MPV (7.4-10.4) fL Sodium (136-145) mmol/L BUN/Creatinine Ratio (10-20) Glucose (70-99(Fasting)) mg/dl POC Glucose 155 H (70-99) mg/dl AST (13-39) U/L Diagnostic Findings CT head-. 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 Otherwise unremarkable CTA of the head. No acute intracranial abnormality. Probable meningioma adjacent to the superior right cerebral convexity measures 2 cm. CTA neck. No aneurysm, dissection, high-grade stenosis or arterial occlusion. 50% stenosis of the V2 segment left vertebral artery secondary to uncovertebral hypertrophy of the cervical spine. Multinodular thyroid goiter. MRI brain-No acute intracranial findings. 1.8 cm extra-axial enhancing lesion overlying the right frontal lobe which corresponds to the finding on head CT. This likely reflects a meningioma. White matter T2 hyperintense foci suggestive of mild small vessel disease. MRA head-3 mm saccular aneurysm involving the supraclinoid segment of left internal carotid artery redemonstrated. Otherwise unremarkable MRA of the head. MRA neck-Patency of the bilateral carotid and vertebral arteries with no evidence of hemodynamically significant stenosis.
[2022-04-20] MEDS: LOSARTAN/HCTZ 50/12.5MG TAB PO SCH (12:08)
[2022-04-20] MEDS: FLUoxetine HCL 20 MG CAP PO SCH (12:08)
[2022-04-20] MEDS: PANTOprazole 40 MG TAB PO SCH (12:08)
--- NOTE | 2022-04-20 13:33 | Electrocardiogram Report ---
Test Reason : Blood Pressure : / mmHG Vent. Rate : 060 BPM Atrial Rate : 060 BPM P-R Int : 202 ms QRS Dur : 074 ms QT Int : 420 ms P-R-T Axes : 039 -15 004 degrees QTc Int : 420 ms Normal sinus rhythm Possible Left atrial enlargement Septal infarct , age undetermined Inferior infarct , age undetermined Abnormal ECG When compared with ECG of 25-AUG-2021 09:53, Septal infarct is now Present Inferior infarct is now Present Confirmed by Noah Sheth ([id number]) on 04/20/2022 1:32:59 PM Referred By: REFERRED SELF Confirmed By:Noah Sheth
[2022-04-20] MEDS ORDERED: GADOBUTROL 65ML VIAL IV ONE (13:35)
--- NOTE | 2022-04-20 13:53 | Magnetic Resonance Report ---
MRI OF THE BRAIN WITHOUT AND WITH IV CONTRAST CLINICAL HISTORY: Unsteady gait. Imbalance. COMPARISON STUDY: Head CT performed earlier today. TECHNIQUE: Utilizing a 1.5 Estephania magnet and dedicated coil, multiplanar, multiecho imaging of the br ain was performed pre and postcontrast administration. IV administration of 9.2 mL of Gadavist contr ast was uneventful. Thin cut T1 post contrast imaging was performed. FINDINGS: There are no foci of restricted diffusion to suggest acute infarct. No acute intracranial h emorrhage, midline shift or mass effect is present. Note is made of a 1.8 x 1.7 cm extra-axial enhanc ing lesion overlying the right frontal lobe which corresponds to the finding on head CT. No additiona l intracranial masses are present. Flow-voids for the major intracranial vessels are present. White m atter T2 hyperintense foci suggest small vessel disease. Prominence of the extra-axial spaces is due to atrophy. Calvarial signal is within normal limits. Partially empty sella is noted. Opacified poste rior left ethmoid air cells present. There is no mastoid fluid. IMPRESSION: 1. No acute intracranial findings. 2. 1.8 cm extra-axial enhancing lesion overlying the right frontal lobe which corresponds to the find ing on head CT. This likely reflects a meningioma. 3. White matter T2 hyperintense foci suggestive of mild small vessel disease. ACT 112: Negative or not required by law. Electronically signed by: Mio Cruz M.D. 04/20/2022 1:51 PM
--- NOTE | 2022-04-20 13:58 | Magnetic Resonance Report ---
MR angio head wo con HISTORY: 72 years-old Female imbalance acute vertigo with dizziness. COMPARISON: Brain MRI of same day TECHNIQUE: MRA of the head was obtained without the use of IV contrast utilizing 3-D [id number] equencing with MIP reformats. All measurements were obtained according to NASCET criteria. A dose low ering technique was used consistent with the principals of KIN. FINDINGS: The bilateral internal carotid arteries are patent. Unchanged 3 mm saccular aneurysm arises from the medial aspect of the supraclinoid segment of the left internal carotid artery. The middle and anterio r cerebral arteries are patent. Normal anterior communicating artery. The distal vertebral arteries, basilar and posterior cerebral arteries are patent. No dissection, high-grade stenosis or arterial oc clusion. IMPRESSION: 1. 3 mm saccular aneurysm involving the supraclinoid segment of left internal carotid artery redemons trated. 2. Otherwise unremarkable MRA of the head. ACT 112: Negative or not required by law. The above report was generated using voice recognition software. It may contain grammatical, syntax o r spelling errors. Electronically signed by: Ajay Cadena M.D. 04/20/2022 1:57 PM
--- NOTE | 2022-04-20 14:04 | Hospitalist Progress Note ---
Date of Service April 20, 2022 Assessment & Plan (1) Gait instability: Plan: Uncertain cause-may be related to her chronic mobility issue. Per neurology. Will have PT an OT formally assess. Rule out underlyin metabolic disturbance including UTI, b12 def, folate def, vit d def or other issue. (2) DM type 2 (diabetes mellitus, type 2): Plan: chronic, hypoglycemic episode this evening, improved with juice. Loosened insulin coverage to include correction factor only. (3) Hypothyroidism: Plan: TSH pending, cont home levothyroxine. (4) HTN (hypertension): Plan: chronic, around goal. Cont current therapy (5) Bipolar 2 disorder: Plan: chronic, stable. Cont current therapy (6) Asthma: Plan: chronic, stable. Cont current therapy (7) DVT prophylaxis: Plan: Lovenox Full Code Dispo-to home in am. Pending PT/OT recommendations and clinical improvement. Lulú Turcios DO [facility] Hospitalist Admission and Anticipated Discharge Date Admission Date: April 20, 2022 Subjective 72-year-old female with 5 years of an ill-defined chronic gait disturbance with episodes of falls and occasional flareups presents with disequilibrium. She denies any strokelike symptoms that are focal but does report bilateral numbness of the hands and difficulty ambulating. Work-up including MRI of the brain and MRA of the vessels is unremarkable for stroke and reveals a small incidental aneurysm and meningioma which was previously known. She requires the use of canes for stability and reported to neurology team that she was back to her baseline dystaxic gait. On my arrival to the room she was diaphoretic and hypoglycemic with a sugar of 63. After drinking juice she felt improved but still appeared symptomatic from a dizziness standpoint. She denies any issues with her ears including no ear fullness or pain and she denies any recent illnesses. Review of Systems Review of Systems: All systems were reviewed and negative except as indicated above. Physical Exam Physical Exam: CONSTITUTIONAL: WNWD, vitals as above, diaphoretic EYES: EOMI bilaterally, PERRL, normal conjunctivae, no scleral icterus ENT: external ear and nose normal, oropharynx clear, MMM NECK: trachea midline, RESPIRATORY: clear to auscultation bilaterally, no crackles, rales or wheezes, normal respiratory effort CARDIOVASCULAR: regular rate and rhythm, S1 and 2 heard without murmurs, gallops or rubs, no JVD, no peripheral edema, CHEST: inspection of chest was normal GASTROINTESTINAL: soft, nontender, ND, no guarding MUSCULOSKELETAL: strength 5/5 throughout, head is normocephalic and atraumatic, neck supple, normal palpation of chest wall without tenderness SKIN: warm and dry NEUROLOGIC: patellar DTRs 2+ bilat. PERRL, EOMI, no facial palsy, no dysar thria. CN 2-12 grossly intact, no sensory deficit, normal cognition, normal speech, no tremor PSYCHIATRIC: alert cooperative and oriented to person, place and time. Euthymic mood, makes good eye contact, language grossly intact, recent and remote memory grossly intact. Results & Data Results & Data ([facility]) Vital Signs (Past 12 Hours) Vital Signs Temp Pulse Pulse Resp BP BP Pulse Ox 04/20/22 12:00 36.6 C 67 20 131/77 98 04/20/22 09:29 52 L 04/20/22 07:30 59 L 16 152/77 H 96 04/20/22 07:00 57 L 16 162/78 H 95 04/20/22 06:30 61 16 96 04/20/22 05:59 57 L 16 169/86 H 96 04/20/22 04:50 76 16 163/84 H 96 04/20/22 03:40 59 L 16 141/80 H 98 04/20/22 02:36 99 04/20/22 02:30 59 L 18 98 04/20/22 02:20 58 L 19 98 04/20/22 02:10 58 L 14 98 Laboratory Results Short CBC 04/20/22 Range/Units 00:42 WBC 5.05 (4.8-10.8) K/uL Hgb 10.4 L (12.0-16.0) g/dL Hct 33.1 L (37-47) % Plt Count 280 (130-400) K/uL BMP 04/20/22 00:42 Sodium 135 L Potassium 3.9 Chloride 100 Carbon Dioxide 28 BUN 21 Creatinine 0.91 Glucose 107 H Calcium 9.2 Liver Function 04/20/22 Range/Units 00:42 Total Bilirubin 0.3 (0.2-1.0) mg/dl AST 12 L (13-39) U/L ALT 9 (7-52) U/L Alkaline Phosphatase 71 (34-104) U/L Albumin 4.2 (3.4-5.0) gm/dl Diagnostic Findings Head CT 04/20/22 02:23 CT head/brain wo/w con HISTORY: 72 years-old Female eval for post circ stroke; off balance; dizzy acute strokelike symptoms with dizziness COMPARISON: CTA head neck of same day TECHNIQUE: CTA of the head was obtained both with and without the use of uncertain 116 mL Optiray 320. All measurements were obtained according to NASCET criteria. 3-D coronal and sagittal MIPS were obtained and submitted for review. A dose lowering technique was used consistent with the principals of KIN. FINDINGS: CT HEAD: No acute intracranial hemorrhage, midline shift, abnormal extra axial collection, hydrocephalus or acute territorial infarct. Mild involutional changes. Minimal white matter hypodensities are suggestive of probable chronic microvascular ischemic disease. No acute calvarial fracture. The mastoid air cells and paranasal sinuses are clear. CTA: There is a 3 x 2 mm saccular aneurysm which arises from the medial aspect of the supraclinoid segment of the left internal carotid artery on image 84 series 5. No evidence of aneurysm rupture. The imaged right internal carotid artery appears normal. Patent anterior and middle cerebral arteries. The imaged distal aspects of the vertebral arteries, basilar and posterior cerebral arteries appear unremarkable. No aneurysm, dissection, high-grade stenosis or arterial occlusion. Cerebral venous sinuses are patent. There is no abnormal intra-axial enhancement. Enhancing 2.0 cm extra-axial partially calcified lesion adjacent to the superior aspect of the right cerebral convexity is noted on image 210 series 5. IMPRESSION: 1. 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 2. Otherwise unremarkable CTA of the head. 3. No acute intracranial abnormality. 4. Probable meningioma adjacent to the superior right cerebral convexity measures 2 cm. ACT 112: Negative or not required by law. The above report was generated using voice recognition software. It may contain grammatical, syntax or spelling errors. Electronically signed by: Ajay Cadena M.D. 04/20/2022 7:46 AM Neck CTA 04/20/22 02:23 CT angio neck with con CLINICAL HISTORY: 72 years-old Female with eval for post circ stroke. Acute strokelike symptoms COMPARISON STUDY: CTA had of same day TECHNIQUE: Following the IV administration of 116 mL of Optiray, CT angiogram of the neck was performed from the aortic arch to the skull base. Images are reviewed in the axial, sagittal, and coronal planes. 3-D MIPS images are created and assessed. IV contrast was administered without complication. All measurements were calculated based on NASCET criteria. A dose lowering technique was utilized adhering to the principles of ALARA. FINDINGS: The imaged opacified pulmonary artery is unremarkable. Mild atherosclerosis of the thoracic arch. There is patency of the innominate and imaged subclavian arteries. The common and imaged internal carotid arteries are patent and unremarkable. There is 50% stenosis involving the V2 segment of the left vertebral artery at the level of C4-C5 secondary to uncovertebral hypertrophy (image 205 of series 6). The right vertebral artery is widely patent. Patent basilar artery. There are a few tiny nonspecific solid pulmonary nodules measuring up to 3-4 mm within the left upper lobe. No pneumothorax. Heterogeneous multinodular thyroid. Unremarkable soft tissues. Multilevel degenerative changes of the cervical spine. Cardiomegaly. IMPRESSION: 1. No aneurysm, dissection, high-grade stenosis or arterial occlusion. 2. 50% stenosis of the V2 segment left vertebral artery secondary to uncovertebral hypertrophy of the cervical spine. 3. Multinodular thyroid goiter. ACT 112: Negative or not required by law. The above report was generated using voice recognition software. It may contain grammatical, syntax or spelling errors. Electronically signed by: Ajay Cadena M.D. 04/20/2022 8:26 AM Brain MRI 04/20/22 09:18 MRI OF THE BRAIN WITHOUT AND WITH IV CONTRAST CLINICAL HISTORY: Unsteady gait. Imbalance. COMPARISON STUDY: Head CT performed earlier today. TECHNIQUE: Utilizing a 1.5 Estephania magnet and dedicated coil, multiplanar, multiecho imaging of the brain was performed pre and postcontrast administration. IV administration of 9.2 mL of Gadavist contrast was u neventful. Thin cut T1 post contrast imaging was performed. FINDINGS: There are no foci of restricted diffusion to suggest acute infarct. No acute intracranial hemorrhage, midline shift or mass effect is present. Note is made of a 1.8 x 1.7 cm extra-axial enhancing lesion overlying the right frontal lobe which corresponds to the finding on head CT. No additional intracranial masses are present. Flow-voids for the major intracranial vessels are present. White matter T2 hyperintense foci suggest small vessel disease. Prominence of the extra-axial spaces is due to atrophy. Calvarial signal is within normal limits. Partially empty sella is noted. Opacified posterior left ethmoid air cells present. There is no mastoid fluid. IMPRESSION: 1. No acute intracranial findings. 2. 1.8 cm extra-axial enhancing lesion overlying the right frontal lobe which corresponds to the finding on head CT. This likely reflects a meningioma. 3. White matter T2 hyperintense foci suggestive of mild small vessel disease. ACT 112: Negative or not required by law. Electronically signed by: Mio Cruz M.D. 04/20/2022 1:51 PM Head MRA 04/20/22 09:18 MR angio head wo con HISTORY: 72 years-old Female imbalance acute vertigo with dizziness. COMPARISON: Brain MRI of same day TECHNIQUE: MRA of the head was obtained without the use of IV contrast utilizing 3-D [id number] sequencing with MIP reformats. All measurements were obtained according to NASCET criteria. A dose lowering technique was used consistent with the principals of KIN. FINDINGS: The bilateral internal carotid arteries are patent. Unchanged 3 mm saccular aneurysm arises from the medial aspect of the supraclinoid segment of the left internal carotid artery. The middle and anterior cerebral arteries are patent. Normal anterior communicating artery. The distal vertebral arteries, basilar and posterior cerebral arteries are patent. No dissection, high-grade stenosis or a rterial occlusion. IMPRESSION: 1. 3 mm saccular aneurysm involving the supraclinoid segment of left internal carotid artery redemonstrated. 2. Otherwise unremarkable MRA of the head. ACT 112: Negative or not required by law. The above report was generated using voice recognition software. It may contain grammatical, syntax or spelling errors. Electronically signed by: Ajay Cadena M.D. 04/20/2022 1:57 PM Medications Administered Current Inpatient Medications Acetaminophen (Acetaminophen 325 Mg Tab) 650 mg PO Q4H PRN PRN Reason: Pain or Fever Stop: 05/20/22 09:17 Last Admin: 04/20/22 10:21 Dose: 650 mg Documented by: Albuterol (Albuterol Hfa 8 Gm Inhaler) 1 puffs INH QIDR PRN PRN Reason: sob Stop: 05/20/22 10:40 Aspirin (Aspirin 81 Mg Ectab) 81 mg PO PM [facility] Stop: 05/20/22 20:59 Atorvastatin Calcium (Atorvastatin 40 Mg Tab) 40 mg PO HS [facility] Stop: 05/20/22 20:59 Buspirone HCl (Buspirone 5 Mg Tab) 10 mg PO BID [facility] Stop: 05/20/22 20:59 Cyanocobalamin (Cyanocobalamin (B-12) 500 Mcg Tablet) 1,000 mcg PO QAM [facility] Stop: 05/21/22 08:59 Dextrose (Dextrose 50% 50 Ml Syringe) 25 - 50 ml IV UD PRN; Protocol PRN Reason: Hypoglycemia Protocol Stop: 05/20/22 09:44 Enoxaparin Sodium (Enoxaparin Inj 40 Mg/0.4 Ml Syr) [facility] Stop: 05/20/22 09:44 Last Admin: 04/20/22 10:19 Dose: 40 mg Documented by: Ferrous Sulfate (Ferrous Sulfate 325 Mg Tab) [address] [facility] Stop: 05/21/22 08:59 Fexofenadine HCl (Fexofenadine Hcl 180 Mg Tab) [facility] Stop: 05/21/22 08:59 Fluoxetine HCl (Fluoxetine Hcl 20 Mg Cap) 40 [facility] Stop: 05/20/22 10:59 Last Admin: 04/20/22 12:08 Dose: 40 mg Documented by: Glucagon (Glucagon For Inj 1 Mg Vial) 1 mg IM UD PRN; Protocol PRN Reason: Hypoglycemia Protocol Stop: 05/20/22 09:44 Glucose (Glucose 40% Gel 15 Gm Tube) 15 - 30 gm PO UD PRN; Protocol PRN Reason: Hypoglycemia Protocol Stop: 05/20/22 09:44 Glucose (Glucose 10 Tabs/Tube) 4 - 8 tabs PO UD PRN; Protocol PRN Reason: Hypoglycemia Protocol Stop: 05/20/22 09:44 HCTZ/Losartan Potassium (Losartan/Hctz 50/12.5mg Tab) [facility] Stop: 05/20/22 10:59 Last Admin: 04/20/22 12:08 Dose: 1 tab Documented by: Hyoscyamine (Hyoscyamine Sulfate 0.125 Mg Tab) 0.125 mg PO BID PRN PRN Reason: Cramps Stop: 05/20/22 10:40 Sodium Chloride (1/2 Nss) 1,000 mls @ 80 mls/hr IV .[id number] [facility] Stop: 04/20/22 21:47 Last Admin: 04/20/22 10:18 Dose: 80 mls/hr Documented by: Insulin Aspart (Insulin Aspart Per Unit) 0 units SC ACHS [facility] Stop: 05/20/22 09:17 Last Admin: 04/20/22 13:54 Dose: 3 units Documented by: Lamotrigine (Lamotrigine 100 Mg Tab) 250 mg PO HS [facility] Stop: 05/20/22 20:59 Levothyroxine Sodium (Levothyroxine Sodium 75 Mcg Tablet) 75 mcg PO DAILYBB [facility] Stop: 05/21/22 06:29 Miscellaneous (Carbohydrates For Hypoglycemia ) 15 - 30 gm PO UD PRN PRN Reason: Hypoglycemia Treatment Stop: 05/20/22 09:44 Montelukast Sodium (Montelukast Sodium 10 Mg Tablet) 10 mg PO [facility] Stop: 05/20/22 20:59 Nitroglycerin (Nitroglycerin Sl 0.4 Mg/Tab Tab) 0.4 mg SL UD PRN PRN Reason: Chest Pain Stop: 05/20/22 09:17 Ondansetron HCl (Ondansetron Inj 2 Mg/Ml 2 Ml Vial) 4 mg IV Q6H PRN PRN Reason: Nausea Stop: 05/20/22 09:17 Pantoprazole Sodium (Pantoprazole 40 Mg Tab) 40 mg PO QAM [facility] Stop: 05/20/22 10:59 Last Admin: 04/20/22 12:08 Dose: 40 mg Documented by: Polyethylene Glycol (Polyethylene (Miralax) 17 Gm Pack) 17 gm PO DAILY PRN PRN Reason: Constipation Stop: 05/20/22 09:17 Trazodone HCl (Trazodone Hcl 100 Mg Tab) 100 mg PO [facility] Stop: 05/20/22 20:59
--- NOTE | 2022-04-20 14:13 | Magnetic Resonance Report ---
MR angio neck wo/w con CLINICAL HISTORY: imbalance TECHNIQUE: 3D time of flight MRA of the neck was performed without and with intravenous contrast. 3-D reconstructions were obtained in multiple planes. Comparison: None available at the time of this dictation. FINDINGS: Flow signal consistent with patency is shown within the common carotid, cervical segments of the inte rnal carotid, external carotid, and vertebral arteries. No aneurysm, dissection, hemodynamically sign ificant flow stenosis, nor occlusion is present. Assessment of stenosis of the internal carotid arteries is based on NASCET criteria. IMPRESSION: Patency of the bilateral carotid and vertebral arteries with no evidence of hemodynamically significa nt stenosis. ACT 112: Negative or not required by law. Electronically signed by: Asim Garcia M.D. 04/20/2022 2:12 PM
--- NOTE | 2022-04-20 14:20 | Electrocardiogram Report ---
Test Reason : Blood Pressure : / mmHG Vent. Rate : 052 BPM Atrial Rate : 052 BPM P-R Int : 218 ms QRS Dur : 086 ms QT Int : 438 ms P-R-T Axes : 047 -14 017 degrees QTc Int : 407 ms Sinus bradycardia with 1st degree A-V block Possible Left atrial enlargement Borderline ECG When compared with ECG of 20-APR-2022 02:30, (unconfirmed) Criteria for Septal infarct are no longer Present No significant change was found Confirmed by Noah Sheth ([id number]) on 04/20/2022 2:19:39 PM Referred By: REFERRED SELF Confirmed By:Noah Sheth
[2022-04-20] MEDS ORDERED: lamoTRIgine 100 MG TAB PO SCH ×3 (21:00)
[2022-04-20] MEDS ORDERED: traZODone HCL 100 MG TAB PO SCH (21:00)
[2022-04-20] MEDS ORDERED: ATORVASTATIN 40 MG TAB PO SCH (21:00)
[2022-04-20] MEDS ORDERED: MONTELUKAST SODIUM 10 MG TABLET PO SCH (21:00)
[2022-04-20] MEDS ORDERED: ASPIRIN 81 MG ECTAB PO SCH (21:00)
[2022-04-20] MEDS: busPIRone 5 MG TAB PO SCH (21:47)
[2022-04-21 06:08] LABS: Basophils # (auto) 0.01 K/uL (0-0.2); Basophils % (auto) 0.2 %; Eosinophils # (auto) 0.13 K/uL (0-0.5); Eosinophils % (auto) 2.9 %; Hematocrit (blood only) 34.2 % (37-47); Hemoglobin 11.2 g/dL (12.0-16.0); Immature Granulocytes # (auto) 0.01 K/uL (0.00-0.02); Immature Granulocytes % (auto) 0.2 %; Lymphocytes # (auto) 1.27 K/uL (1.2-3.4); Lymphocytes % (auto) 28.7 %; Mean Corpuscular Hemoglobin 29.1 pg (25-34); Mean Corpuscular Hgb Conc 32.7 g/dL (32-36); Mean Corpuscular Volume 88.8 fL (80-100); Monocytes # (auto) 0.43 K/uL (0.11-0.59); Monocytes % (auto) 9.7 %; Neutrophils # (auto) 2.58 K/uL (1.4-6.5); Neutrophils % (auto) 58.3 %; Platelet Count 249 K/uL (130-400); RDW Coefficient of Variation 14.5 % (11.5-14.5); RDW Standard Deviation 47.6 fL (36.4-46.3); Red Blood Count 3.85 M/uL (4.2-5.4); White Blood Count 4.43 K/uL (4.8-10.8)
[2022-04-21 06:28] LABS: Appearance Urine Clear (Clear); Bacteria Urine Automated Negative (Negative); Bilirubin Urine Negative (Negative); Blood Urine Negative (Negative); Cast Urine Automated 0 /lpf (0-5); Color Urine Yellow; Glucose Urine UA Negative (Negative); Ketones Urine Negative (Negative); Leukocyte Esterase Urine Trace (Negative); Nitrite Urine Negative (Negative); Protein Urine Negative (Negative); RBC Urine Automated 0-4 /hpf (0-4); Specific Gravity Urine 1.014 (1.000-1.030); Urobilinogen Urine Negative (Negative); pH Urine 6.5 (4.5-7.5)
[2022-04-21] MEDS ORDERED: LEVOTHYROXINE SODIUM 75 MCG TABLET PO SCH (06:30)
[2022-04-21 06:36] LABS: BUN Creatinine Ratio 18.9 (10-20); Calcium 9.3 mg/dl (8.5-10.1); Creatinine Clr Calc Pharmacy 60.9 ml/min; Est GFR (African American) 70.3 ml/min; Est GFR (Non-African American) 60.7 ml/min; Magnesium 1.8 mg/dl (1.7-2.4); Potassium 3.6 mmol/L (3.5-5.1)
[2022-04-21 06:50] LABS: Ferritin 30.4 ng/ml (8-388)
[2022-04-21 06:56] LABS: Folate (Folic Acid) 12.52 ng/ml (>5.38)
[2022-04-21 07:00] LABS: Vitamin D, 25 Hydrox 19.7 ng/ml (30-100)
[2022-04-21] MEDS: PANTOprazole 40 MG TAB PO SCH (08:00)
[2022-04-21] MEDS: LOSARTAN/HCTZ 50/12.5MG TAB PO SCH (08:00)
[2022-04-21] MEDS: ENOXAPARIN INJ 40 MG/0.4 ML SYR SQ SCH (08:00)
[2022-04-21] MEDS: busPIRone 5 MG TAB PO SCH (08:01)
[2022-04-21] MEDS: FLUoxetine HCL 20 MG CAP PO SCH (08:01)
[2022-04-21] MEDS: INSULIN ASPART PER UNIT SC SCH ×2 (08:03→11:43)
[2022-04-21] MEDS ORDERED: CYANOCOBALAMIN (B-12) 500 MCG TABLET PO SCH (09:00)
[2022-04-21] MEDS ORDERED: FEXOFENADINE HCL 180 MG TAB PO SCH (09:00)
[2022-04-21] MEDS ORDERED: ERGOCALCIFEROL 50,000 UNITS 1250 MCG CAP PO SCH (09:00)
[2022-04-21] MEDS ORDERED: FERROUS SULFATE 325 MG TAB PO SCH (09:00)
--- NOTE | 2022-04-21 16:06 | Communication Note ---
Date of Service: April 21, 2022 By CMS guidelines, a determination that the admission or continued stay is not medically necessary has been made by a member of the UR committee and a phys ician for this hospital stay, therefore a Code 44 will be completed and the Inpatient admission will be changed to outpatient. Rakan Cabello MD Member, Utilization Review Committee
--- NOTE | 2022-04-21 16:08 | Discharge Summary ---
Date of Service April 21, 2022 Discharge Data Allergies Allergy/AdvReac Type Severity Reaction Status Date / Time pollen extracts Allergy Intermediate Congested Verified 09/09/21 09:02 amoxicillin [From Augmentin] AdvReac gi bleed Verified 09/09/21 09:02 clavulanic acid AdvReac gi bleed Verified 09/09/21 09:02 [From Augmentin] Consultations 04/20/22 04:25 ED Decision to Admit Stat 04/20/22 09:18 Consult Neurology Routine Ordered Studies 04/20/22 02:23 CT angio neck with con Urgent CT head/brain wo/w con Urgent 04/20/22 09:18 MR angio head wo con Urgent MR angio neck wo/w con Urgent MR brain wo/w con Urgent Hospital Course (1) Gait instability: Uncertain cause-may be related to her chronic mobility issue. Per neurology. Will have PT an OT formally assess. Rule out underlyin metabolic disturbance including UTI, b12 def, folate def, vit d def or other issue. (2) DM type 2 (diabetes mellitus, type 2): chronic, hypoglycemic episode this evening, improved with juice. Loosened insulin coverage to include correction factor only. (3) Hypothyroidism: TSH pending, cont home levothyroxine. (4) HTN (hypertension): chronic, around goal. Cont current therapy (5) Bipolar 2 disorder: chronic, stable. Cont current therapy (6) Asthma: chronic, stable. Cont current therapy (7) DVT prophylaxis: Lovenox Full Code Dispo-to home in am. Pending PT/OT recommendations and clinical improvement. DO Chito CatalanKaiser Manteca Medical Centerist By [facility] guidelines, a determination that the admission or continued stay is not medically necessary has been made by a member of the Utilization Review committee and a physician for this hospital stay. Therefore, a Code 44 will be completed and the inpatient admission will be changed to outpatient. Discharge Plan Discharge Items Patient Disposition: Home - Self-Care Reason For Visit: IMBALANCE Discharge Diagnosis: Gait instability vitamin D deficiency Condition on Discharge: Good Activity: Resume your previous activity Non-emergency contact: Primary Care Provider Call non-emergency contact if: you have any medication questions, your symptoms worsen, your pain is not controlled, your pain is worsening, your pain is unusual for you, your pain is concerning for you and you have a fever Follow-up/Referrals: Laura Wen MD [Primary Care Provider] - (Date & Time 04/28/2022 12:20 PM Provider Haily Aponte PA-C Department [facility] ) Diet: Carb Consistent or DM2 Addtl Attending Provider Instructions: Please follow-up with Dr. Grande who is the movement specialist recommended by [facility] Neurology as instructed. It is recommended that you follow-up with your primary care provider within one week of discharge from the hospital. This is to ensure you are completely back to baseline and all referrals are in place. This is also a good time to initiate a deeper investigation into why you have chronic dysequilibrium. A formal referral to Neurology would be a good place to start. Please take the vitamin D supplementation provided for 12 weeks. It was a pleasure taking care of you! Please call if you have any questions or problems. You can reach a [facility] hospitalist on duty at [facility] 24 hours a day by calling [phone]. Take care of yourself. Lulú Turcios, [facility] Centerist Pending Studies at Discharge: No Stand-Alone Forms: My [facility] Medications and DC Order Prescriptions: New ergocalciferol (vitamin D2) 1,250 mcg (50,000 unit) Capsule 50,000 unit PO Q7D@0900 Qty: 11 RF: 0 Continued fluoxetine 40 mg capsule 40 mg PO QAM RF: 0 atorvastatin 40 mg tablet 40 mg PO HS RF: 0 lamotrigine 150 mg tablet 150 mg PO HS RF: 0 levothyroxine 75 mcg tablet 75 mcg PO DAILYBB RF: 0 trazodone 100 mg tablet 100 mg PO HS RF: 0 pantoprazole 40 mg tablet,delayed release (DR/EC) 40 mg PO QAM RF: 0 buspirone 10 mg tablet 10 mg PO BID RF: 0 montelukast 10 mg tablet 10 mg PO HS RF: 0 lamotrigine 100 mg tablet 100 mg PO HS RF: 0 metformin 500 mg tablet extended release 24 hr 1,000 mg PO BID RF: 0 cyanocobalamin (vitamin B-12) [Vitamin B-12] 1,000 mcg Tablet 1,000 mcg PO QAM RF: 0 aspirin [Brennon Low Dose Aspirin] 81 mg Tablet,Delayed Release (Dr/Ec) 81 mg PO PM RF: 0 losartan-hydrochlorothiazide 100-25 mg Tablet 1 tab PO QAM RF: 0 ferrous sulfate 325 mg (65 mg iron) Tablet 325 mg PO QAM RF: 0 fexofenadine 180 mg Tablet 180 mg PO QAM RF: 0 albuterol sulfate 90 mcg/actuation Hfa Aerosol Inhaler 1 puff INHALATION QID PRN (Reason: sob) RF: 0 hyoscyamine sulfate [Levsin] 0.125 mg Tablet 0.125 mg PO BID PRN (Reason: Cramps) RF: 0 Discharge Orders: Discharge Order (Routine); Ordered 04/21/22 Ordered By: Lulú Turcios Admission Data Admit Date/Time: 04/20/22 06:09 Attending Provider: Lulú Turcios Admit Provider: Capo Retana Primary Care Provider: Laura Wen Other Providers: Capo Retana ; Chris Mott
== END 2022-04-21 16:36 | disposition home or self-care (01) | DRG 92 ==
LOC: ED 22:47 → 2W 04-20 06:09 → INTOOBSV 04-20 06:09 → 2W 04-20 08:00